=== PATIENT | female | born 1990 | race Hispanic/Latino ===

== ENCOUNTER 2021-05-23 07:37 | Emergency (ER) | payer MEDICAID | END 2021-05-23 08:58 | disposition left against medical advice (07) | LOC: CSHERS 07:37 | DX: Z53.21 Procedure and treatment not carried out due to patient leaving prior to being seen by health care provider (principal) ==

== ENCOUNTER 2021-11-04 08:17 | Outpatient (CLI) | payer OTHER ==
[2021-11-04 10:15] LABS: Mean Corpuscular HGB CONC 34.6 g/dL (32.0-36.0); Mean Corpuscular Hemoglobin 30.5 pg (27.0-33.0); Mean Corpuscular Volume 88.2 fl (81.6-98.3); Platelet Count 119 10x3/uL (150-450); RBC Distribution Width 13.9 % (11.5-14.5); Red Blood Cell (RBC) Count 4.59 10x6/uL (3.90-5.03); White Blood Cell (WBC) Count 7.4 10x3/uL (3.5-10.5)
[2021-11-04 11:04] LABS: Hep B Surf Ag Non-Reactive S/CO (NonReactive)
[2021-11-04 11:17] LABS: HBSAg Index 0.19 S/CO (0-0.99)
[2021-11-04 15:27] LABS: Syphilis Antibody Nonreactive (Nonreactive); Syphilis Antibody Index 0.07 S/CO (<1.00 Non-Reactive)
== END 2021-11-04 08:18 | disposition home or self-care (01) ==
LOC: CSHLAB 08:17
PROVIDERS: ATTEND Obstetrics & Gynecology
DX: Z01.812 Encounter for preprocedural laboratory examination (principal); O34.219 Maternal care for unspecified type scar from previous cesarean delivery; Z3A.00 Weeks of gestation of pregnancy not specified
CPT/HCPCS: 85027; 86780; 86900; 86901; 87340

== ENCOUNTER 2021-11-06 05:33 | Inpatient (IN) | payer OTHER ==
[~2021-11-06 05:33] MED LIST: Bicitra 30 ML UDCUP PO PRN; Famotidine/PF 20 mg/2ml Vial SLOW IVP PRN; Ondansetron PF 4 MG/2 ML Vial IVP PRN; Promethazine HCl 25 MG/ML VIAL IM PRN; ceFAZolin 2 GM/Dextrose 50 ML 2 GM in Premix Bag 1 BAG IVPB SCH; hydrALAZINE 20 MG/ML VIAL SLOW IVP PRN
[2021-11-06] MEDS ORDERED: Lactated Ringer's 1,000 ML IV SCH ×2 (06:00)
[2021-11-06] MEDS ORDERED: Metoclopramide HCl 10 MG/2 ML VIAL ONE (06:58)
[2021-11-06] MEDS ORDERED: Ondansetron PF 4 MG/2 ML Vial ONE (06:58)
[2021-11-06] MEDS ORDERED: Morphine PF 10 MG/10 ML VIAL ONE (06:58)
[2021-11-06] MEDS ORDERED: Dexamethasone 4 mg/ml Vial ONE (06:58)
[2021-11-06] MEDS ORDERED: Oxytocin 10 UNITS/ML VIAL ONE (06:59)
[2021-11-06] MEDS ORDERED: Ketorolac Tromethamine 30 MG/ML VIAL ONE (06:59)
[2021-11-06] MEDS ORDERED: Phenylephrine 40 MG/NS 250 ML 250 ML ONE (06:59)
[2021-11-06 07:06] VITALS: BMI 41.1
[2021-11-06] MEDS ORDERED: Meperidine HCl/PF 25 MG/ML VIAL SLOW IVP PRN (08:41)
[2021-11-06] MEDS ORDERED: Naloxone HCl 0.4 mg/ml Vial IVP PRN ×2 (08:41)
[2021-11-06] MEDS ORDERED: Ondansetron PF 4 MG/2 ML Vial IVP PRN ×2 (08:41→11:03)
[2021-11-06] MEDS ORDERED: Promethazine HCl 25 MG/ML VIAL IM PRN (08:41)
[2021-11-06] MEDS ORDERED: Promethazine HCl 25 MG SUPP PR PRN (08:41)
[2021-11-06] MEDS ORDERED: Hydrocerin (Eucerin) Cream 120 gm Jar TOP PRN (08:41)
[2021-11-06] MEDS ORDERED: Fentanyl 100 MCG/2 ML VIAL SLOW IVP PRN (08:41)
[2021-11-06] MEDS ORDERED: Ondansetron HCl/PF 4 MG/2 ML Vial IVP PRN (08:41)
[2021-11-06] MEDS ORDERED: Naloxone HCl 0.4 mg/ml Vial IV PRN (08:41)
[2021-11-06] MEDS ORDERED: Communication Order-Pharmacy FS SCH (08:45)
[2021-11-06] MEDS ORDERED: Boostrix 0.5 ML (Tdap) VIAL IM ONE (11:03)
[2021-11-06] MEDS ORDERED: Simethicone Chewable 80 MG TAB PO PRN (11:03)
[2021-11-06] MEDS ORDERED: Lanolin Ointment 7 GM TUBE TOP PRN (11:03)
[2021-11-06] MEDS ORDERED: hydrALAZINE 20 MG/ML VIAL SLOW IVP PRN (11:03)
[2021-11-06] MEDS ORDERED: NS w/ Oxytocin 30 units 500 ML IV SCH (11:03)
[2021-11-06] MEDS ORDERED: Misoprostol 200 MCG TAB PR PRN (11:03)
[2021-11-06] MEDS ORDERED: Ferrous Sulfate 325 MG TAB PO SCH (11:15)
[2021-11-06] MEDS ORDERED: Prenatal Vitamin 1 TAB PO SCH (11:15)
[2021-11-06] MEDS: diphenhydrAMINE 50 MG/ML VIAL IVP PRN ×3 (11:45→22:14)
[2021-11-06] MEDS: Lactated Ringer's 1,000 ML IV SCH (12:13)
[2021-11-06] MEDS: Ketorolac Tromethamine 30 MG/ML VIAL IVP PRN ×2 (13:17→20:07)
[2021-11-06] MEDS: Ferrous Sulfate 325 MG TAB PO SCH (21:39)
[2021-11-07 04:24] LABS: Hemoglobin 11.6 g/dL (12.0-15.5); Mean Corpuscular HGB CONC 33.8 g/dL (32.0-36.0); Mean Corpuscular Hemoglobin 30.4 pg (27.0-33.0); Mean Platelet Volume 11.1 fl (7.4-10.4); Platelet Count 119 10x3/uL (150-450); RBC Distribution Width 13.7 % (11.5-14.5); Red Blood Cell (RBC) Count 3.81 10x6/uL (3.90-5.03); White Blood Cell (WBC) Count 10.2 10x3/uL (3.5-10.5)
[2021-11-07] MEDS: Ketorolac Tromethamine 30 MG/ML VIAL IVP PRN (05:11)
[2021-11-07] MEDS: Lactated Ringer's 1,000 ML IV SCH ×3 (07:21→13:09)
[2021-11-07] MEDS: diphenhydrAMINE 50 MG/ML VIAL IVP PRN (07:26)
[2021-11-07] MEDS: HYDROcodone/Acetaminophen 5/325 mg Tablet PO PRN ×3 (07:26→20:17)
[2021-11-07] MEDS: Ferrous Sulfate 325 MG TAB PO SCH ×2 (08:03→19:57)
[2021-11-07] MEDS: Prenatal Vitamin 1 TAB PO SCH (08:34)
[2021-11-07] MEDS: Ibuprofen 800 MG TAB PO SCH ×2 (13:40→22:24)
[2021-11-07] MEDS ORDERED: Loperamide HCl 2 MG CAP PO PRN (17:23)
[2021-11-07] MEDS ORDERED: Loperamide HCl 2 MG CAP PO SCH (17:30)
[2021-11-08] MEDS: HYDROcodone/Acetaminophen 5/325 mg Tablet PO PRN ×4 (01:13→13:46)
[2021-11-08] MEDS: Lactated Ringer's 1,000 ML IV SCH ×2 (04:31→10:33)
[2021-11-08] MEDS: Ibuprofen 800 MG TAB PO SCH ×2 (05:01→13:45)
[2021-11-08 05:05] VITALS: TEMP 97.8
[2021-11-08] MEDS: Ferrous Sulfate 325 MG TAB PO SCH (07:58)
[2021-11-08] MEDS: Prenatal Vitamin 1 TAB PO SCH (09:06)
[2021-11-08 11:54] VITALS: BP 115/62
== END 2021-11-08 15:30 | disposition home or self-care (01) | DRG 788 ==
LOC: CSHLD 05:33 → CSHPP 10:50
PROVIDERS: ADMIT Obstetrics & Gynecology; ATTEND Obstetrics & Gynecology
PROC: 10D00Z1 Extraction of Products of Conception, Low, Open Approach (ICD-10-PCS; principal; 2021-11-06)
DX: O34.211 Maternal care for low transverse scar from previous cesarean delivery (principal); Z3A.39 39 weeks gestation of pregnancy; Z37.0 Single live birth; O99.214 Obesity complicating childbirth
CPT/HCPCS: 36415; 51702; 85027; 86850; 86900; 86901; J0690; J1100; J1200; J1885; J2274; J2405; J2590; J2765; J7120; S0028